=== PATIENT | female | born 1945 | race Caucasian/White ===

== ENCOUNTER 2016-04-07 17:54 | Observation (INO) | payer MEDICARE, OTHER ==
[~2016-04-07] VITALS: Ht 152.4 cm; Wt 46.0 kg
[~2016-04-07 17:54] MED LIST: CIPR500T4 PO; FLUT1SPR9 NASAL; LITH450 PO; [UNRECOGNIZED DRUG - CODE] PO
[2016-04-07 17:57] VITALS: BP 144/71; PULSE 109; RESP 20; TEMP 98.6; O2SAT 99
--- NOTE | 2016-04-07 18:37 | PD ---
HPI Chief Complaint: Abnormal Results Time Seen by Provider: 18:37 Travel History International Travel<30 days: No Contact w/Intl Traveler<30days: No Traveled to known affect area: No History of Present Illness HPI 70-year-old female with a history of bipolar disorder, anxiety, depression and COPD presents to the emergency department for evaluation of left lower leg DVT. Patient states that one week ago she began to have cramping in her left posterior calf. States that she took Aleve which relieved her symptoms. States that 2 nights ago she began to have swelling in the left leg and ankle. States that the swelling is worsened over the past 2 days which prompted her to see her PCP in office today. States that her doctor ordered an outpatient ultrasound which showed she had an extensive DVT in the left leg and she was told to come to the emergency department. She does complain of swelling in the left leg and some dull pain. Denies any chest pain, shortness of breath, lightheadedness, dizziness, numbness or tingling, weakness. Denies any history of recent long distance travel, hormones, cancer or history of blood clots. She does smoke cigarettes. No other complaints. PFSH Past Medical History Bipolar Disorder: Yes Anxiety: Yes Depression: Yes Chest Pain: Yes COPD: Yes Musculoskeletal: Yes (DEGENERATIVE DISC DISEASE) Psychiatric: Yes Respiratory: Yes Tetanus Vaccination: Unknown Influenza Vaccination: No ?: Not Menopausal: Yes : 6 Para: 3 Miscarriage: 3 Tubal Ligation: Yes (1981) Past Surgical History Appendectomy: Yes Cholecystectomy: Yes Tonsillectomy: Yes Other Surgery: Yes (SPLEENECTOMY AGE 25) Social History Alcohol Use: Yes ("OCCASIONALLY") Tobacco Use: Yes (1PPD) Substance Use: No Allergies-Medications (Allergen,Severity, Reaction): Coded Allergies: Codeine (Verified Allergy, Severe, Chest Pain, 04/07/16) Reported Meds & Prescriptions Reported Meds & Active Scripts Active Reported [place] Carbonate ER ([place] Carbonate) 450 Mg Tab 675 Mg PO DAILY Kelp (Iodine (Kelp)) 150 Mcg Tab 520 Mcg PO DAILY Review of Systems Except as stated in HPI: all other systems reviewed are Neg Physical Exam Narrative GENERAL: Well-nourished and well-developed pleasant patient in no acute distress who is nontoxic appearing. SKIN: Warm and dry. HEAD: Normocephalic and atraumatic. EYES: No injection, drainage, or hyphema noted. PERRLA. EOMI. ENT: No nasal drainage noted. Oropharynx is clear. NECK: Supple and the trachea is midline. CARDIOVASCULAR: Regular rate and rhythm. RESPIRATORY: Breath sounds are equal bilaterally with no accessory muscle use, wheezing, rhonchi, or crackles. GASTROINTESTINAL: Abdomen is soft, non-tender, and nondistended. MUSCULOSKELETAL: Left lower leg is swollen with mild erythema and tenderness to palpation of the left calf. DP pulses are 2+ bilaterally. Capillary refill is within normal limits. No obvious deformities, cyanosis, or ecchymosis is present throughout the upper and lower extremities. Patient has full range of motion without any signs of neurovascular compromise. NEUROLOGICAL: Awake, alert, and oriented. Normal speech and gait. Cranial nerves are grossly intact. Data Data Last Documented VS Vital Signs Date Time Temp Pulse Resp B/P Pulse Ox O2 Delivery O2 Flow Rate FiO2 04/07/16 18:40 99 Room Air 04/07/16 18:16 100 22 04/07/16 17:57 98.6 144/71 Orders Complete Blood Count With Diff (04/07/16 18:36) Comprehensive Metabolic Panel (04/07/16 18:36) Prothrombin Time / Inr (Pt) (04/07/16 18:36) Act Partial Throm Time (Ptt) (04/07/16 18:36) Iv Access Insert/Monitor (04/07/16 18:36) Ecg Monitoring (04/07/16 18:36) Oximetry (04/07/16 18:36) Sodium Chloride 0.9% Flush (Ns Flush) (04/07/16 18:45) Admit Order (Ed Use Only) (04/07/16 18:53) Labs Laboratory Tests Test 04/07/16 18:45 White Blood Count 15.5 TH/MM3 Red Blood Count 5.12 MIL/MM3 Hemoglobin 16.9 GM/DL Hematocrit 50.4 % Mean Corpuscular Volume 98.5 FL Mean Corpuscular Hemoglobin 33.0 PG Mean Corpuscular Hemoglobin 33.5 % Concent Red Cell Distribution Width 13.4 % Platelet Count 351 TH/MM3 Mean Platelet Volume 9.3 FL Neutrophils (%) (Auto) 69.5 % Lymphocytes (%) (Auto) 20.4 % Monocytes (%) (Auto) 4.8 % Eosinophils (%) (Auto) 2.5 % Basophils (%) (Auto) 2.8 % Neutrophils # (Auto) 10.8 TH/MM3 Lymphocytes # (Auto) 3.2 TH/MM3 Monocytes # (Auto) 0.7 TH/MM3 Eosinophils # (Auto) 0.4 TH/MM3 Basophils # (Auto) 0.4 TH/MM3 CBC Comment DIFF FINAL Differential Comment Prothrombin Time 11.0 SEC Prothromb Time International 1.0 RATIO Ratio Activated Partial 25.9 SEC Thromboplast Time Sodium Level 140 MEQ/L Potassium Level 4.1 MEQ/L Chloride Level 106 MEQ/L Carbon Dioxide Level 26.9 MEQ/L Anion Gap 7 MEQ/L Blood Urea Nitrogen 7 MG/DL Creatinine 1.19 MG/DL Estimat Glomerular Filtration 45 ML/MIN Rate Random Glucose 136 MG/DL Calcium Level 9.2 MG/DL Total Bilirubin 0.5 MG/DL Aspartate Amino Transf 25 U/L (AST/SGOT) Alanine Aminotransferase 16 U/L (ALT/SGPT) Alkaline Phosphatase 120 U/L Total Protein 7.8 GM/DL Albumin 3.3 GM/DL MDM Medical Decision Making Medical Screen Exam Complete: Yes Emergency Medical Condition: Yes Differential Diagnosis DVT versus extensive versus dependent edema Narrative Course 70-year-old female presents to the emergency department for evaluation of left leg DVT. Patient is afebrile, vital signs are stable. She does have swelling of her left lower leg. I accessed the [facility] imaging website and found the ultrasound report for the imaging was performed today. It shows DVT extending in the popliteal, peroneal and posterior tibial veins consistent with extensive DVT. No evidence of thrombus in the femoral vein. IV access is obtained, labs have been drawn and sent. Patient will be admitted to family medicine service for anticoagulation. CBC shows an elevated white blood cell count of 15.5. CMP shows mild renal insufficiency with a creatinine of 1.19, GFR 45. Coags are unremarkable. Patient is administered Lovenox 40 mg subcutaneous per the request of the admitting physician. I discussed the case with my attending physician Dr. Palma who is aware of the patients history, physical examination findings, and treatment plan. Physician Communication Physician Communication I spoke with Dr. Hinton, medical record technician, who agrees to admit the patient to their service. Diagnosis Primary Impression: Left leg DVT Qualified Code: I82.492 - Acute deep vein thrombosis (DVT) of other specified vein of left lower extremity Admitting Information Admitting Physician Requests: Observation Dori Gold Apr 07, 2016 18:37
[2016-04-07 18:40] VITALS: O2SAT 99
[2016-04-07] MEDS ORDERED: SODIUM CHLORIDE 0.9% FLUSH 5 ML FLUSH IVF PRN ×2 (18:45→21:45)
[2016-04-07] MEDS ORDERED: LITH450T PO (18:53)
[2016-04-07] MEDS ORDERED: KELP150T PO (18:53)
[2016-04-07 19:13] LABS: AUTOMATED NEUTROPHIL # 10.8 TH/MM3 (1.8-7.7); BASOPHIL # 0.4 TH/MM3 (0-0.2); BASOPHIL % 2.8 % (0.0-2.0); EOSINOPHIL # 0.4 TH/MM3 (0-0.4); EOSINOPHIL % 2.5 % (0.0-4.0); HEMATOCRIT 50.4 % (35.0-46.0); LYMPH % 20.4 % (9.0-44.0); LYMPHOCYTE # 3.2 TH/MM3 (1.0-4.8); MEAN CELL VOLUME 98.5 FL (80.0-100.0); MEAN CORPUSCULAR HGB CONC 33.5 % (32.0-36.0); MONO % 4.8 % (0.0-8.0); NEUT % 69.5 % (16.0-70.0); PLATELET COUNT 351 TH/MM3 (150-450); RED BLOOD COUNT 5.12 MIL/MM3 (4.00-5.30); RED CELL DISTRIBUTION WIDTH 13.4 % (11.6-17.2); WHITE BLOOD COUNT 15.5 TH/MM3 (4.0-11.0)
[2016-04-07 19:16] LABS: HEMO FLAGS DIFF FINAL
[2016-04-07 19:19] LABS: APTT (PATIENT) 25.9 SEC (24.3-30.1)
--- NOTE | 2016-04-07 20:23 | HHI.HP ---
[facility] Service Family Medicine Primary Care Physician Greer Hinton MD Admission Diagnosis Extensive Left Leg DVT Diagnoses: Chief Complaint: L leg swelling and pain International Travel<30 Days: No Contact w/Intl Traveler<30days: No Known Affected Area: No History of Present Illness 70 year-old female with bipolar d/o, COPD/tobacco abuse, and hyperthyroidism presents to ED for evaluation of L leg DVT. One week ago, began having cramping in L posterior calf, which extended up leg posteriorly to mid-thigh. Over past several days, developed increased swelling in calf and ankle which prompted her to go to PCP. PCP office ordered outpt U/S, which confirmed extensive DVT in LLE and instructed her to go to ED for tx. Continues to report dull calf pain and swelling improved minimallly with Aleve. Denies chest pain, shortness of breath, lightheadedness, dizziness, numbness or tingling, weakness. Denies recent long distance travel, hormones, cancer or history of blood clots. She does smoke cigarettes Review of Systems ROS Limitations: Poor Historian, Other (Hyperverbal, tangential speech, difficult to re-direct) Constitutional: DENIES: Fever, Chills Respiratory: DENIES: Cough, Shortness of breath Cardiovascular: DENIES: Chest pain, Palpitations Gastrointestinal: DENIES: Abdominal pain, Nausea, Vomiting Musculoskeletal: COMPLAINS OF: Muscle aches (L leg) Integumentary: DENIES: Abnormal pigmentation Neurologic: DENIES: Abnormal gait, Headache Psychiatric: DENIES: Anxiety, Mood changes, Agitation Past Family Social History Past Medical History Bipolar d/o, on lithium COPD Tobacco Abuse Recurrent sinusitis Non-toxic goiter Hyperthyroidism, on OTC Kelp (?) Denies cardiac history OBGYN hx: , 3 miscarriages. Hx LSIL (2010) Past Surgical History Cataract extraction (X [address] Boggs) Appendectomy Cholecystectomy Splenectomy Hernia repair Colposcopy (2010) Reported Medications [place] Carbonate ER ([place] Carbonate) 450 Mg Tab 675 Mg PO DAILY Kelp (Iodine (Kelp)) 150 Mcg Tab 520 Mcg PO DAILY Allergies: Coded Allergies: Codeine (Verified Allergy, Severe, Chest Pain, 04/07/16) Family History Son: "blood clot to pacemaker" last week. She is unsure if he smokes tobacco. Denies family history of bleeding or clotting disorders. Social History High school graduate. partner, Pat. Denies travel history out of country Tobacco: 1-1.5 PPD * 50 years Alcohol- Several times a week, 3-6 beers Recreational drugs: denies Physical Exam Vital Signs Vital Signs Date Time Temp Pulse Resp B/P Pulse Ox O2 Delivery O2 Flow Rate FiO2 04/07/16 18:40 99 Room Air 04/07/16 18:16 100 22 98 Room Air 04/07/16 17:57 98.6 109 20 144/71 99 Physical Exam GENERAL: Thin female, NAD. DERM: Warm and dry. Dry skin over LLE. No erythema. HEENT: PERRL. EOMI. MMM. NECK: No LAD CV: RRR. No murmurs. RESP: Lungs CTAB. No wheezing. No wet cough. Good air movement. Breathing comfortably on RA GI: Abd soft, NTND. No guarding MSK: LLE slightly more swollen circumfrencially than R with dilated veins on anterior real. Unable to appreciate any ankle swelling- medial and lateral malleoli easily visualized. Unable to palpate posterior tibial pulses, however, good perfusion. Sensation intact to light touch in LE. ROM and strength at knee/ankle is full. NEUROLOGICAL: Grossly motor and sensory intact PSYCH: Rapid, pressured, tangential speech. Poor insight (pt denies speaking quickly, states she is at her normal). Cheery, uplifted affect. Laboratory Laboratory Tests Test 04/07/16 18:45 White Blood Count 15.5 Red Blood Count 5.12 Hemoglobin 16.9 Hematocrit 50.4 Mean Corpuscular Volume 98.5 Mean Corpuscular Hemoglobin 33.0 Mean Corpuscular Hemoglobin 33.5 Concent Red Cell Distribution Width 13.4 Platelet Count 351 Mean Platelet Volume 9.3 Neutrophils (%) (Auto) 69.5 Lymphocytes (%) (Auto) 20.4 Monocytes (%) (Auto) 4.8 Eosinophils (%) (Auto) 2.5 Basophils (%) (Auto) 2.8 Neutrophils # (Auto) 10.8 Lymphocytes # (Auto) 3.2 Monocytes # (Auto) 0.7 Eosinophils # (Auto) 0.4 Basophils # (Auto) 0.4 CBC Comment DIFF FINAL Differential Comment Prothrombin Time 11.0 Prothromb Time International 1.0 Ratio Activated Partial 25.9 Thromboplast Time Result Diagram: 04/07/16 9604 Imaging DVT imaging through different EMR- unable to import Assessment and Plan Assessment and Plan 70 year-old female with bipolar d/o, hyperthyroidism, and COPD/tobacco abuse admitted to observation 04/07/16 for LLE DVT. Code Status Full Discussed Condition With SDW: Dr. Tomer Hinton Problem List: (1) Left leg DVT Status: Acute Plan: [facility] U/S report (04/07/16): DVT extending in the popliteal , peroneal and posterior tibial veins consistent with extensive DVT. No evidence of thrombus in the femoral vein. 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 DVT likely secondary to hypercoagulable state 2/2 smoking and pt reported prolonged immobility in bed while taking care of elderly mother. As first non-provoked CVT, with suspected source (tobacco, immobility) hypercoagulable workup not deemed necessary at present time -Admit to observation -Therapeutic Lovenox 40mg IV BID (1mg/kg) -Likely change Lovenox to Xarelto PO in AM, pending discussion with primary team - acceptable to use as monotherapy for outpt tx DV -Continue for 3-12 months per PCP recommendations (2) Bipolar disorder without psychotic features Status: Chronic Plan: -Continue home [place] 675mg daily -Encourage medication compliance (3) Tobacco dependence Status: Acute Plan: 1 PPD * 50 years. Hx intolerance to Chantix ("nightmares"). Low motivation to stop smoking. -Discussed that smoking increases risk of clot formation and likely contributed to DVT -Declines nicotine patch: "makes me shaky, my body rejects them" -Smoking cessation counseling provided (4) Goiter diffuse, nontoxic Status: Chronic Plan: Most recent TSH 03/2015 was low, indicating hyperthyroidism. Unsure why pt is on this suppliemnt- unlikely that she is iodine deficient in [place] diet and and may actually be contributing to hyperthyroid state. -Hold home Kelp (iodine), consider discontinuation at discharge (5) Fluid, Electrolytes, Nutrition, DVT prophylaxis Status: Chronic Plan: Fluids: Per PO Electrolytes: wnl, continue to monitor Nutrition: Regular diet DVT ppx: Therapeutic Lovenox 1mg/kg IV BID GI ppx: not indicated Pain: Tylenol 650mg PO q4h PRN pain 1-10 OOB ad agustina Dispo: Likely discharge tomorrow pending VSS and transition to oral anticoagulant therapy Problem Qualifiers (1) Left leg DVT: Qualified Code: I82.492 - Acute deep vein thrombosis (DVT) of other specified vein of left lower extremity Flor Colbert MD R1 Apr 07, 2016 20:23
[2016-04-07 20:40] VITALS: BP 155/78; PULSE 92; RESP 18; O2SAT 98
[2016-04-07] MEDS ORDERED: ACETAMINOPHEN 500 MG CPLT PO ONE (21:00)
[2016-04-07 21:08] LABS: ALKALINE PHOSPHATASE 120 U/L (45-117); ALT (GPT) 16 U/L (10-53); ANION GAP 7 MEQ/L (5-15); AST (GOT) 25 U/L (15-37); BICARBONATE 26.9 MEQ/L (21.0-32.0); BLOOD UREA NITROGEN 7 MG/DL (7-18); CHLORIDE 106 MEQ/L (98-107); GLOMERULAR FILTRATION RATE 45 ML/MIN (>89); SODIUM (NA) 140 MEQ/L (136-145); TOTAL BILIRUBIN ADULT 0.5 MG/DL (0.2-1.0)
[2016-04-07 21:09] LABS: POTASSIUM 4.1 MEQ/L (3.5-5.1)
[2016-04-07] MEDS ORDERED: ENOXAPARIN SODIUM 40 MG/0.4 ML SYRINGE SQ ONE (21:15)
[2016-04-07] MEDS: SODIUM CHLORIDE 0.9% FLUSH 5 ML FLUSH IVF SCH (21:45)
[2016-04-07 22:54] VITALS: O2SAT 98
[2016-04-08 04:00] VITALS: BP 118/56; PULSE 66; RESP 16; TEMP 97.3; O2SAT 99
[2016-04-08] MEDS ORDERED: ENOXAPARIN SODIUM 60 MG/0.6 ML SYRINGE SQ SCH (06:00)
[2016-04-08 07:52] VITALS: BP 129/62; PULSE 75; RESP 19; TEMP 99.2; O2SAT 97
[2016-04-08] MEDS ORDERED: LITHIUM CARBONATE 450 MG CONTROLLED RELEASE TAB PO SCH (09:00)
[2016-04-08] MEDS: SODIUM CHLORIDE 0.9% FLUSH 5 ML FLUSH IVF SCH (09:44)
--- NOTE | 2016-04-08 10:53 | HHI.FPPN ---
Subjective Remarks Pt. seen and examined; discussed with Dr. Morales on 04-07-16. This is a 70 yo female known to me with goiter, smoking history. She has quite a sedentary lifestyle, at home caring for her elderly mother. She developed a charley horse type pain in the left calf last wednesday which seemed to resolved with weight-bearing, but her discomfort persisted despite Aleve. She has had some pain, swelling and paresthesias of the left LE. This a.m. she is more comfortable, but anxious to return home as her mother is a significant fall risk and has dementia and history of multiple falls/ fractures. Please see H&P for this observation admission for additional past, family and social history and ROS. Objective Vitals Vital Signs Date Time Temp Pulse Resp B/P Pulse Ox O2 Delivery O2 Flow Rate FiO2 04/08/16 07:52 99.2 75 19 129/62 97 04/08/16 04:00 97.3 66 16 118/56 99 04/07/16 22:54 98 04/07/16 20:40 92 18 155/78 98 Room Air 04/07/16 18:40 99 Room Air 04/07/16 18:16 100 22 98 Room Air 04/07/16 17:57 98.6 109 20 144/71 99 I/O 04/07/16 04/07/16 04/07/16 04/08/16 04/08/16 04/08/16 07:00 15:00 23:00 07:00 15:00 23:00 Intake Total 240 ml Balance 240 ml Intake Oral 240 ml # Voids 1 1 Result Diagram: 04/07/16184404/07/161844 Imaging Extensive DVT in the superficial femoral, popliteal, peroneal and posterior tibial veins, not compressible. Common femoral vein no evidence of thrombus. Objective Remarks O. CONSTITUTIONAL/GEN: normally nourished, in NAD. EYES: conjunctiva normal, PERRLA, EOMI. ENT: Mouth and pharynx normal. NECK: thyroid midline, carotids symmetrical. LUNGS: clear A-P, respiratory effort is normal. CARDIOVASCULAR: RR without murmur or gallop. No significant edema. GI/ABD: soft without masses, without organomegaly. NEURO: No focal deficits. SKIN: color normal, no rashes noted. HEME/LYMPH: no bruising, petechia or significant adenopathy MUSC: back is normal in appearance. LLE shows mild increase in circumference, no palpable cords. Gustavo's sign vaguely positive. PSYCH/MENTAL STATUS: Alert and oriented x 3. A/P Assessment and Plan 70 year-old female with bipolar d/o, hyperthyroidism, and COPD/tobacco abuse admitted to observation 04/07/16 for extensive LLE DVT in the superficial femoral , popliteal, peroneal and posterior tibial veins.. Attending Attestation Patient seen and examined. Case reviewed and discussed with the resident team. Agree with plan of care as discussed with me and documented in the resident note. Problem List: (1) Left leg DVT Status: Acute Plan: [facility] U/S report (04/07/16): DVT extending in the popliteal , peroneal and posterior tibial veins consistent with extensive DVT. No evidence of thrombus in the femoral vein. 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 DVT likely secondary to hypercoagulable state 2/2 smoking and pt reported prolonged immobility in bed while taking care of elderly mother. As first non-provoked CVT, with suspected source (tobacco, immobility) hypercoagulable workup not deemed necessary at present time -Admit to observation -Therapeutic Lovenox 40mg IV BID (1mg/kg) -Likely change Lovenox to Xarelto PO in AM, pending discussion with primary team - acceptable to use as monotherapy for outpt tx DV -Continue for 3-12 months per PCP recommendations (2) Bipolar disorder without psychotic features Status: Chronic Plan: -Continue home [place] 675mg daily -Encourage medication compliance (3) Tobacco dependence Status: Acute Plan: 1 PPD * 50 years. Hx intolerance to Chantix ("nightmares"). Low motivation to stop smoking. -Discussed that smoking increases risk of clot formation and likely contributed to DVT -Declines nicotine patch: "makes me shaky, my body rejects them" -Smoking cessation counseling provided (4) Goiter diffuse, nontoxic Status: Chronic Plan: Most recent TSH 03/2015 was low, indicating hyperthyroidism. Unsure why pt is on this suppliemnt- unlikely that she is iodine deficient in [place] diet and and may actually be contributing to hyperthyroid state. -Hold home Kelp (iodine), consider discontinuation at discharge (5) Fluid, Electrolytes, Nutrition, DVT prophylaxis Status: Chronic Plan: Fluids: Per PO Electrolytes: wnl, continue to monitor Nutrition: Regular diet DVT ppx: Therapeutic Lovenox 1mg/kg IV BID GI ppx: not indicated Pain: Tylenol 650mg PO q4h PRN pain 1-10 OOB ad agustina Dispo: Likely discharge tomorrow pending VSS and transition to oral anticoagulant therapy Problem Qualifiers (1) Left leg DVT: Qualified Code: I82.412 - Acute deep vein thrombosis (DVT) of femoral vein of left lower extremity Greer Hinton MD Apr 08, 2016 10:53
[2016-04-08] MEDS ORDERED: XARE15TA PO (11:40)
[2016-04-08] MEDS ORDERED: RIVAROXABAN 15 MG TAB PO ONE (11:45)
--- NOTE | 2016-04-08 11:45 | HHI.DCPOC ---
Discharge Care Plan Diagnosis: (1) Left leg DVT Goals to Promote Your Health * To prevent worsening of your condition and complications * To maintain your health at the optimal level Directions to Meet Your Goals Take your medications as prescribed Follow your dietary instruction Follow activity as directed Keep your appointments as scheduled Take your immunizations and boosters as scheduled If your symptoms worsen call your PCP, if no PCP go to Urgent Care Center or Emergency Room Smoking is Dangerous to Your Health. Avoid second hand smoke Call the 24-hour hour crisis hotline for domestic abuse at Monroe Trammell MD R1 Apr 08, 2016 11:45
[2016-04-28] MEDS ORDERED: CELE20TA PO (13:51)
[2016-06-23] MEDS ORDERED: ASPI81CH37 CHEW (16:25)
== END 2016-04-08 17:57 | disposition home or self-care (01) ==
LOC: NEPE 17:54 → NEDA 18:55 → NEPGCP 23:30
PROVIDERS: ADMIT Family Medicine; ATTEND Family Medicine
DX: I82.492 Acute embolism and thrombosis of other specified deep vein of left lower extremity (principal); M79.662 Pain in left lower leg; N28.9 Disorder of kidney and ureter, unspecified; F17.210 Nicotine dependence, cigarettes, uncomplicated; J44.9 Chronic obstructive pulmonary disease, unspecified; F31.9 Bipolar disorder, unspecified
CPT/HCPCS: 80053; 85025; 85610; 85730; 99284; G0378; J1650

== ENCOUNTER 2016-11-17 12:56 | Observation (INO) | payer MEDICARE, OTHER ==
[~2016-11-17] VITALS: Ht 162.6 cm; Wt 50.0 kg
[~2016-11-17 12:56] MED LIST changes: +ASPI81CH6 CHEW; -CIPR500T4 PO; -FLUT1SPR9 NASAL; +FLUT50SP EACH NARE; +KELP150T PO; -LITH450 PO; +LITH450T PO; -[UNRECOGNIZED DRUG - CODE] PO
[2016-11-17 12:57] VITALS: BP 158/74; PULSE 98; RESP 16; TEMP 99.7; O2SAT 98
[2016-11-17] MEDS ORDERED: IOHEXOL 350 MG/ML 10 ML VIAL (for RAD DIAG) IVCONTRAST ONE (12:57)
[2016-11-17] MEDS ORDERED: IODI150T (14:51)
--- NOTE | 2016-11-17 14:53 | PD ---
HPI Chief Complaint: Pain: Acute or Chronic Time Seen by Provider: 14:30 Travel History International Travel<30 days: No Contact w/Intl Traveler<30days: No Traveled to known affect area: No History of Present Illness HPI Ms. Rodney is a 71-year-old female with past medical history of blood clots, ITP , and splenectomy presenting today with a blood clot in her right thigh. She states that she had an appointment this morning with her PCP, Dr. Greer Hinton, at 8:30 where she stated she had right groin pain that started a week ago. She states she just started having swelling today in her right thigh. She was sent over to [facility] where she was told she had several blood clots. She was then sent to the ED here. She last had a blood clot in her left thigh in March of this year. She was placed on Xarelto 30 mg, but had severe nosebleeds. She was then decreased to 10 mg a day for 2 months. She is now taking Zoraida 81 mg a day. She denies any recent long car/plane rides. She is very active. No chest pain, no shortness of breath. PFSH Past Medical History Bipolar Disorder: Yes Anxiety: Yes Depression: Yes Chest Pain: Yes COPD: Yes Musculoskeletal: Yes (DEGENERATIVE DISC DISEASE) Psychiatric: Yes Respiratory: Yes Menopausal: Yes : 6 Para: 3 Miscarriage: 3 Tubal Ligation: Yes (1981) Past Surgical History Appendectomy: Yes Cholecystectomy: Yes Tonsillectomy: Yes Other Surgery: Yes (SPLEENECTOMY AGE 25) Social History Alcohol Use: Yes ("OCCASIONALLY") Tobacco Use: Yes (1PPD) Substance Use: No Allergies-Medications (Allergen,Severity, Reaction): Coded Allergies: codeine (Unverified Allergy, Severe, Chest Pain, 11/17/16) Reported Meds & Prescriptions Reported Meds & Active Scripts Active Fluticasone Nasal [place] 50 Mcg/Act Naspr 100 Mcg EACH NARE DAILY 50 mcg/spray Reported Kelp (Iodine) 150 Mcg Tablet Aspirin Low Dose (Aspirin) 81 Mg Chew 81 Mg CHEW DAILY [place] Carbonate ER ([place] Carbonate) 450 Mg Tab 675 Mg PO DAILY Review of Systems General / Constitutional: No: Fever, Chills HENT: No: Headaches, Lightheadedness Cardiovascular: No: Chest Pain or Discomfort, Palpitations Respiratory: No: Shortness of Breath Neurologic: No: Weakness, Dizziness Physical Exam Narrative GENERAL: Well-nourished, well-developed patient. SKIN: Warm and dry. HEAD: Normocephalic. EYES: No scleral icterus. No injection or drainage. NECK: Supple, trachea midline. No JVD or lymphadenopathy. CARDIOVASCULAR: Regular rate and rhythm without murmurs, gallops, or rubs. RESPIRATORY: Breath sounds equal bilaterally. No accessory muscle use. Diffuse expiratory wheezes. GASTROINTESTINAL: Abdomen soft, non-tender, nondistended. EXTREMITIES: No cyanosis, Right thigh>than left. Negative Homans sign. Tenderness of right calf muscle. NEUROLOGICAL: Awake, alert. Non-focal. Data Data Last Documented VS Vital Signs Date Time Temp Pulse Resp B/P (MAP) Pulse Ox O2 Delivery O2 Flow Rate FiO2 11/17/16 14:52 99 16 11/17/16 12:57 99.7 158/74 (102) 98 Room Air Orders Orders Complete Blood Count With Diff (11/17/16 14:47) Comprehensive Metabolic Panel (11/17/16 14:47) Prothrombin Time / Inr (Pt) (11/17/16 14:47) Act Partial Throm Time (Ptt) (11/17/16 14:47) Ct Pulmonary Angiogram (11/17/16 14:47) Enoxaparin Inj (Lovenox Inj) (11/17/16 15:45) Iohexol 350 Inj (Omnipaque 350 Inj) (11/17/16 12:57) Labs Laboratory Tests Test 11/17/16 15:05 White Blood Count 20.4 TH/MM3 Red Blood Count 5.82 MIL/MM3 Hemoglobin 19.8 GM/DL Hematocrit 58.1 % Mean Corpuscular Volume 99.8 FL Mean Corpuscular Hemoglobin 34.0 PG Mean Corpuscular Hemoglobin Concent 34.0 % Red Cell Distribution Width 14.3 % Platelet Count 154 TH/MM3 Mean Platelet Volume 8.4 FL Neutrophils (%) (Auto) 78.6 % Lymphocytes (%) (Auto) 13.7 % Monocytes (%) (Auto) 6.3 % Eosinophils (%) (Auto) 0.7 % Basophils (%) (Auto) 0.7 % Neutrophils # (Auto) 16.0 TH/MM3 Lymphocytes # (Auto) 2.8 TH/MM3 Monocytes # (Auto) 1.3 TH/MM3 Eosinophils # (Auto) 0.1 TH/MM3 Basophils # (Auto) 0.1 TH/MM3 CBC Comment DIFF FINAL Differential Comment Prothrombin Time 11.3 SEC Prothromb Time International Ratio 1.0 RATIO Activated Partial Thromboplast Time 27.3 SEC Blood Urea Nitrogen 7 MG/DL Creatinine 0.94 MG/DL Random Glucose 112 MG/DL Total Protein 8.0 GM/DL Albumin 3.4 GM/DL Calcium Level 9.2 MG/DL Alkaline Phosphatase 114 U/L Aspartate Amino Transf (AST/SGOT) 20 U/L Alanine Aminotransferase (ALT/SGPT) 13 U/L Total Bilirubin 1.2 MG/DL Sodium Level 137 MEQ/L Potassium Level 4.2 MEQ/L Chloride Level 105 MEQ/L Carbon Dioxide Level 24.2 MEQ/L Anion Gap 8 MEQ/L Estimat Glomerular Filtration Rate 59 ML/MIN MDM Medical Decision Making Medical Screen Exam Complete: Yes Emergency Medical Condition: Yes Differential Diagnosis DVT vs PE vs MSK Narrative Course Ms. Rodney is a 71yoWF with a PMH of DVT presenting with DVT. Physical exam shows right calf tenderness. Will rule out PE. [facility]: There is deep venous thrombosis within the superficial femoral vein, popliteal vein, peroneal vein and posterior tibial veins. Extensive DVT. CTA: 1. Pulmonary embolism involving the lower lobe distal segmental and subsegmental pulmonary artery branches bilaterally. Overall, small to moderate thrombus burden without evidence for significant pulmonary artery hypertension or right heart strain at this time. 2. Severe upper lobe predominant centrilobular emphysema. -Coagulation studies -CTA- shows multiple PEs -Consult Case Management for anticoagulation options and affordable pricing for patient. Admitting Information Admitting Physician Requests: Ana Brizuela MD R1 Nov 17, 2016 14:53
[2016-11-17 15:24] LABS: BASOPHIL # 0.1 TH/MM3 (0-0.2); BASOPHIL % 0.7 % (0.0-2.0); EOSINOPHIL # 0.1 TH/MM3 (0-0.4); EOSINOPHIL % 0.7 % (0.0-4.0); HEMATOCRIT 58.1 % (35.0-46.0); HEMO FLAGS DIFF FINAL; LYMPH % 13.7 % (9.0-44.0); LYMPHOCYTE # 2.8 TH/MM3 (1.0-4.8); MEAN CELL VOLUME 99.8 FL (80.0-100.0); MONO % 6.3 % (0.0-8.0); NEUT % 78.6 % (16.0-70.0); PLATELET COUNT 154 TH/MM3 (150-450); RED BLOOD COUNT 5.82 MIL/MM3 (4.00-5.30); RED CELL DISTRIBUTION WIDTH 14.3 % (11.6-17.2); WHITE BLOOD COUNT 20.4 TH/MM3 (4.0-11.0)
[2016-11-17 15:39] LABS: ALT (GPT) 13 U/L (10-53); ANION GAP 8 MEQ/L (5-15); AST (GOT) 20 U/L (15-37); BICARBONATE 24.2 MEQ/L (21.0-32.0); BLOOD UREA NITROGEN 7 MG/DL (7-18); CHLORIDE 105 MEQ/L (98-107); GLOMERULAR FILTRATION RATE 59 ML/MIN (>89); POTASSIUM 4.2 MEQ/L (3.5-5.1); PROTHROMBIN TIME - PATIENT 11.3 SEC (9.8-11.6); SODIUM (NA) 137 MEQ/L (136-145)
[2016-11-17 15:40] LABS: ALKALINE PHOSPHATASE 114 U/L (45-117); TOTAL BILIRUBIN ADULT 1.2 MG/DL (0.2-1.0)
[2016-11-17 15:41] LABS: APTT (PATIENT) 27.3 SEC (24.3-30.1)
--- NOTE | 2016-11-17 16:50 | RADRPT ---
EXAM DATE/TIME: 11/17/2016 16:04 [facility] COMPARISON: No previous studies available for comparison. INDICATIONS : Clot in leg IV CONTRAST: 50 cc Omnipaque 350 (iohexol) IV RADIATION DOSE: 3.59 CTDIvol (mGy) MEDICAL HISTORY : Chronic obstructive pulmonary disease. Diabetes,graves dissease SURGICAL HISTORY : Appendectomy. Cholecystectomy.Splenectomy. ENCOUNTER: Initial ACUITY: 1 day PAIN SCALE: 0/10 LOCATION: chest TECHNIQUE: Volumetric scanning of the chest was performed using a pulmonary embolism protocol MIP images were re constructed. Using automated exposure control and adjustment of the mA and/or kV according to patien t size, radiation dose was kept as low as reasonably achievable to obtain optimal diagnostic quality images. DICOM format image data is available electronically for review and comparison. Follow-up recommendations for detected pulmonary nodules are based at a minimum on nodule size and pa tient risk factors according to Fleischner Society Guidelines. FINDINGS: PULMONARY ARTERIES: There are intraluminal filling defects involving the lower lobe distal segmental and subsegmental pul monary arteries bilaterally. More central segmental and main pulmonary arteries are patent. There is overall, small to moderate thrombus burden. Main pulmonary artery is normal in caliber. LUNGS: Severe upper lobe predominant centrilobular emphysema. PLEURAE: There is no pleural thickening or pleural effusion. MEDIASTINUM: Heart is grossly unremarkable without evidence for pericardial effusion or right heart strain. No sig nificant mediastinal adenopathy. MUSCULOSKELETAL: Within normal limits for patient age. MISCELLANEOUS: Partially imaged bilateral renal cysts noted in the upper abdomen. Adreniform enlargement of the left adrenal gland. CONCLUSION: 1. Pulmonary embolism involving the lower lobe distal segmental and subsegmental pulmonary artery bra nches bilaterally. Overall, small to moderate thrombus burden without evidence for significant pulmon jacquelyn artery hypertension or right heart strain at this time. 2. Severe upper lobe predominant centrilobular emphysema. Javier Johnson MD on November 17, 2016 at 16:43 Board Certified Radiologist. This report was verified electronically.
[2016-11-17 17:05] VITALS: BP 128/78; PULSE 80; RESP 28; O2SAT 99
[2016-11-17] MEDS: ENOXAPARIN SODIUM 60 MG/0.6 ML SYRINGE SQ SCH (17:05)
--- NOTE | 2016-11-17 17:30 | PD ---
Physical Exam Date Seen by Provider: Nov 17, 2016 Time Seen by Provider: 15:00 Narrative I, Dr. Stout, have reviewed the advance practice practitioner's documentation and am in agreement, met with the patient face to face, made the diagnosis, and the medical decision making was done by me. *My assessment and Findings: Patient seen and evaluated with family practice resident, Dr. Diaz, please see previous notes for further details. Patient has been sent in for DVT, for further workup and treatment. Laboratory Tests Test 11/17/16 15:05 White Blood Count 20.4 TH/MM3 (4.0-11.0) Red Blood Count 5.82 MIL/MM3 (4.00-5.30) Hemoglobin 19.8 GM/DL (11.6-15.3) Hematocrit 58.1 % (35.0-46.0) Neutrophils (%) (Auto) 78.6 % (16.0-70.0) Neutrophils # (Auto) 16.0 TH/MM3 (1.8-7.7) Monocytes # (Auto) 1.3 TH/MM3 (0-0.9) Random Glucose 112 MG/DL (74-106) Total Bilirubin 1.2 MG/DL (0.2-1.0) Estimat Glomerular Filtration Rate 59 ML/MIN (>89) CAT scan as revealing PE as well. At this point, patient was given Lovenox in case was discussed with Dr. Hinton, patient's primary care physician, who is agreeable for admission to her service. Data Data Last Documented VS Vital Signs Date Time Temp Pulse Resp B/P (MAP) Pulse Ox O2 Delivery O2 Flow Rate FiO2 11/17/16 17:05 80 28 128/78 (95) 99 Room Air 11/17/16 12:57 99.7 Orders Orders Complete Blood Count With Diff (11/17/16 14:47) Comprehensive Metabolic Panel (11/17/16 14:47) Prothrombin Time / Inr (Pt) (11/17/16 14:47) Act Partial Throm Time (Ptt) (11/17/16 14:47) Ct Pulmonary Angiogram (11/17/16 14:47) Enoxaparin Inj (Lovenox Inj) (11/17/16 17:00) Iohexol 350 Inj (Omnipaque 350 Inj) (11/17/16 12:57) Admit Order (Ed Use Only) (11/17/16 17:11) Labs Laboratory Tests Test 11/17/16 15:05 White Blood Count 20.4 TH/MM3 Red Blood Count 5.82 MIL/MM3 Hemoglobin 19.8 GM/DL Hematocrit 58.1 % Mean Corpuscular Volume 99.8 FL Mean Corpuscular Hemoglobin 34.0 PG Mean Corpuscular Hemoglobin Concent 34.0 % Red Cell Distribution Width 14.3 % Platelet Count 154 TH/MM3 Mean Platelet Volume 8.4 FL Neutrophils (%) (Auto) 78.6 % Lymphocytes (%) (Auto) 13.7 % Monocytes (%) (Auto) 6.3 % Eosinophils (%) (Auto) 0.7 % Basophils (%) (Auto) 0.7 % Neutrophils # (Auto) 16.0 TH/MM3 Lymphocytes # (Auto) 2.8 TH/MM3 Monocytes # (Auto) 1.3 TH/MM3 Eosinophils # (Auto) 0.1 TH/MM3 Basophils # (Auto) 0.1 TH/MM3 CBC Comment DIFF FINAL Differential Comment Prothrombin Time 11.3 SEC Prothromb Time International Ratio 1.0 RATIO Activated Partial Thromboplast Time 27.3 SEC Blood Urea Nitrogen 7 MG/DL Creatinine 0.94 MG/DL Random Glucose 112 MG/DL Total Protein 8.0 GM/DL Albumin 3.4 GM/DL Calcium Level 9.2 MG/DL Alkaline Phosphatase 114 U/L Aspartate Amino Transf (AST/SGOT) 20 U/L Alanine Aminotransferase (ALT/SGPT) 13 U/L Total Bilirubin 1.2 MG/DL Sodium Level 137 MEQ/L Potassium Level 4.2 MEQ/L Chloride Level 105 MEQ/L Carbon Dioxide Level 24.2 MEQ/L Anion Gap 8 MEQ/L Estimat Glomerular Filtration Rate 59 ML/MIN [facility] Medical Record Reviewed: Yes Supervised Visit with JEANNE: No Diagnosis Primary Impression: DVT (deep vein thrombosis) in Additional Impression: Pulmonary embolism Admitting Information Admitting Physician Requests: Connor Pereira MD Nov 17, 2016 17:29
--- NOTE | 2016-11-17 18:01 | HHI.HP ---
[facility] Service Family Medicine Primary Care Physician Greer Hinton MD Admission Diagnosis DVT/PE Diagnoses: International Travel<30 Days: No Contact w/Intl Traveler<30days: No Known Affected Area: No History of Present Illness Ms. Rodney is a 71-year-old female with past medical history of blood clots, ITP , and splenectomy presenting today with a blood clot in her right thigh. She states that she had an appointment this morning with her PCP, Dr. Greer Hinton, at 8:30 where she stated she had right groin pain that started a week ago. She states she just started having swelling today in her right thigh. She was sent over to [facility] where she was told she had several blood clots. She was then sent to the ED here. She last had a blood clot in her left thigh in March of this year. She was placed on Xarelto 30 mg, but had severe nosebleeds. She was then decreased to 10 mg a day for 2 months. She is now taking Zoraida 81 mg a day. She denies any recent long car/plane rides. She is very active. No chest pain, no shortness of breath. Review of Systems Constitutional: DENIES: Fever, Chills Endocrine: DENIES: Polydipsia, Polyuria Eyes: DENIES: Blurred vision, Diplopia, Eye pain, Double Vision Ears, nose, mouth, throat: DENIES: Hearing loss, Throat pain, Running Nose, Sinus Pain Respiratory: DENIES: Cough, Shortness of breath Cardiovascular: COMPLAINS OF: Dyspnea on Exertion (at baseline), Lower Extremity Edema (right thigh), DENIES: Chest pain, Palpitations Gastrointestinal: DENIES: Abdominal pain, Black stools, Bloody stools, Constipation, Diarrhea, Nausea, Vomiting Genitourinary: DENIES: Hematuria, Dysuria Integumentary: DENIES: Pruritus, Rash Neurologic: DENIES: Headache, Localized weakness Past Family Social History Past Medical History PFS Reviewed: Yes HEENT: REPORTS HX OF: Recurrent sinusitis Endocrine: REPORTS HX OF: Diabetes mellitus (dad), Graves disease, Hyperthyroidism Respiratory: REPORTS HX OF: Other respiratory history (smoker X many years) Cardiovascular: DENIES HX OF: Angina, Atrial fibrillation, Cardiac arrhythmias , Coronary artery disease, Deep venous thrombosis, Heart failure, Heart valve disease, Hyperlipidemia, Hypertension, Myocardial infarction, Peripheral vascular dz, Other CV history Gastrointestinal: DENIES HX OF: Colitis, GERD, Irritable bowel syndrome, Liver disease, Pancreatitis, Peptic ulcer disease, Other GI history (had bleeding ulcer 30 years ago) Genitourinary: REPORTS HX OF: Human papillomavirus (probable, had lsil and f/u colposcopy) Gynecologic: REPORTS HX OF: Abnormal pap smear (lsil 6-7 years ago), Other senior analyst developer history (had colposcopy) Age at Menarche: 16 Age at Menopause: 40s History: : 6 Para: 6 Live Births: 3 SAB/TAB (detail in comments): Yes (3 miscarriages) Musculoskeletal: DENIES HX OF: Fractures, Gout, Osteoporosis, Other musculoskeletal hx Cancer - Female: DENIES HX OF: Cervical cancer, Ovarian cancer, Uterine cancer Neurologic: DENIES HX OF: ADHD, Autism, Dementia, Developmental delay, Headaches, Multiple sclerosis, Peripheral neuropathy, Restless leg syndrome, Seizures, Stroke, Transient ischemic attack, Other neurologic history Psychiatric: REPORTS HX OF: Bipolar disorder (on lithium) Events: DENIES HX OF: Anaphylaxis, Gunshot wound, Motor vehicle accident, Other events Disease Management Refuses flu vaccine Refuses mammograms Partner of many years . Now living with 85 yo mother Drinks 3-6 beers per day Eats raisinettes and chips every day at bedtime Smokes more than half a pack of cigarettes daily Feels confined continues to refuse flu shot or mammogram Past Surgical History HEENT: REPORTS HX OF: Cataract extraction (X [address] Boggs), DENIES HX OF: Laryngectomy, Tonsillectomy, Other head surgery, Other eye surgery , Other ear surgery, Other nasal surgery, Other throat surgery Endocrine: DENIES HX OF: Parathyroidectomy, Thyroid surgery, Other endocrine surgery Respiratory: DENIES HX OF: Bronchoscopy, Lobectomy, Other chest surgery Cardiovascular: DENIES HX OF: Angiogram, Angioplasty, CABG surgery, Carotid endarterectomy, Coronary stent, Heart transplant, Pacemaker, Valve replacement, Other cardiac surgery Gastrointestinal: REPORTS HX OF: Appendectomy, Cholecystectomy, Splenectomy, Other GI surgery (hernia) Genitourinary: DENIES HX OF: Bladder surgery, Kidney stone extraction, Nephrectomy, Other surgery Gynecologic: REPORTS HX OF: Other senior analyst developer surgery (colposcopy), DENIES HX OF: Hysterectomy Musculoskeletal: DENIES HX OF: Joint replacement, Other musculoskeletal srg Integumentary: DENIES HX OF: Skin cancer removal, Other integumentary surg Neurologic: DENIES HX OF: Craniotomy, Spinal surgery, Other neurologic surgery Breast: DENIES HX OF: Breast biopsy, Lumpectomy, Mastectomy, bilateral, Mastectomy, left, Mastectomy, right, Other breast surgery Reported Medications Reported Meds & Active Scripts Active Fluticasone Nasal [place] 50 Mcg/Act Naspr 100 Mcg EACH NARE DAILY 50 mcg/spray Reported Kelp (Iodine) 150 Mcg Tablet Aspirin Low Dose (Aspirin) 81 Mg Chew 81 Mg CHEW DAILY [place] Carbonate ER ([place] Carbonate) 450 Mg Tab 675 Mg PO DAILY Allergies: Coded Allergies: codeine (Unverified Allergy, Severe, Chest Pain, 11/17/16) Active Ordered Medications Current Medications Medications (Trade) Dose Ordered Sig/[place] Route Start Time Stop Time Status Last Admin (Lovenox Inj) 50 mg Q12H SQ 11/17/16 17:00 11/17/16 17:05 (NS Flush) 2 ml UNSCH PRN IV FLUSH 11/17/16 18:15 UNV (NS Flush) 2 ml BID IV FLUSH 11/17/16 21:00 UNV (Lovenox Inj) 50 mg Q12H SQ 11/18/16 05:05 UNV (Aspirin Chew) 81 mg DAILY CHEW 11/18/16 09:00 UNV (Flonase James Spr) 1 spray DAILY EACH NARE 11/18/16 09:00 UNV (Eskalith Sr) 675 mg DAILY PO 11/18/16 09:00 UNV Family History non-contributory Social History Social History Social History: Adopted: No Educational Level: 12th Household Members: her partner Pat Marital Status: div Service: No Pets: Yes (fish, 4 cats and dog at Pat's house) Relationships: Pat is significant other (female) Sexual History: Lesbian Travel History: None out of the country Diet and Exercise Dietary Habits: Well-balanced Diet: Rarely or never Alcohol Use Alcohol Intake: 2+ drinks per day Counseling Given: None, Provider counseling (recommended reducing her alcohol intake to one or less a day.) Substance Use Substance Use: Denies use (family history) Counseling Given: None Roxy/Jain Roxy Tradition/Jain: Yarsani Safety Personal Safety: Hx of Physical Abuse: No Hx of Emotional Abuse: No Additional Information Additional History Partner of many years . Now living with 89 yo mother Drinks 3-6 beers per day Eats raisin at amputated chips every day at bedtime Smokes more than a pack of cigarettes daily Feels confined continues to refuse flu shot or mammogram Physical Exam Vital Signs Vital Signs Date Time Temp Pulse Resp B/P (MAP) Pulse Ox O2 Delivery O2 Flow Rate FiO2 11/17/16 17:05 80 28 128/78 (95) 99 Room Air 11/17/16 14:52 99 16 11/17/16 12:57 99.7 98 16 158/74 (102) 98 Room Air Physical Exam GENERAL: Well-nourished, well-developed patient. SKIN: Warm and dry. HEAD: Normocephalic. EYES: No scleral icterus. No injection or drainage. NECK: Supple, trachea midline. No JVD or lymphadenopathy. CARDIOVASCULAR: Regular rate and rhythm without murmurs, gallops, or rubs. RESPIRATORY: Breath sounds equal bilaterally. No accessory muscle use. Diffuse expiratory wheezes. GASTROINTESTINAL: Abdomen soft, non-tender, nondistended. EXTREMITIES: No cyanosis, Right thigh bigger, warmer, and redder than left. Negative Homans sign. Tenderness of right calf muscle. NEUROLOGICAL: Awake, alert. Non-focal. Laboratory Laboratory Tests Test 11/17/16 15:05 White Blood Count 20.4 Red Blood Count 5.82 Hemoglobin 19.8 Hematocrit 58.1 Mean Corpuscular Volume 99.8 Mean Corpuscular Hemoglobin 34.0 Mean Corpuscular Hemoglobin Concent 34.0 Red Cell Distribution Width 14.3 Platelet Count 154 Mean Platelet Volume 8.4 Neutrophils (%) (Auto) 78.6 Lymphocytes (%) (Auto) 13.7 Monocytes (%) (Auto) 6.3 Eosinophils (%) (Auto) 0.7 Basophils (%) (Auto) 0.7 Neutrophils # (Auto) 16.0 Lymphocytes # (Auto) 2.8 Monocytes # (Auto) 1.3 Eosinophils # (Auto) 0.1 Basophils # (Auto) 0.1 CBC Comment DIFF FINAL Differential Comment Prothrombin Time 11.3 Prothromb Time International Ratio 1.0 Activated Partial Thromboplast Time 27.3 Blood Urea Nitrogen 7 Creatinine 0.94 Random Glucose 112 Total Protein 8.0 Albumin 3.4 Calcium Level 9.2 Alkaline Phosphatase 114 Aspartate Amino Transf (AST/SGOT) 20 Alanine Aminotransferase (ALT/SGPT) 13 Total Bilirubin 1.2 Sodium Level 137 Potassium Level 4.2 Chloride Level 105 Carbon Dioxide Level 24.2 Anion Gap 8 Estimat Glomerular Filtration Rate 59 Result Diagram: 11/17/16 1505 11/17/[address] Angiography 11/17/16 1447 Signed Impressions: Service Date/Time: Thursday, November 17, 2016 16:04 - CONCLUSION: 1. Pulmonary embolism involving the lower lobe distal segmental and subsegmental pulmonary artery branches bilaterally. Overall, small to moderate thrombus burden without evidence for significant pulmonary artery hypertension or right heart strain at this time. 2. Severe upper lobe predominant centrilobular emphysema. Javier Johnson MD Course In the emergency department, patient had CT pulmonary angiogram, a PTT, PT/INR, CMP, CBC, Lovenox 1 mg/kg, admission order. Caprini VTE Risk Assessment Caprini VTE Risk Assessment: Mod/High Risk (score >= 2) Caprini Risk Assessment Model Point Value = 1 Point Value = 2 Point Value = 3 Point Value = 5 Age 41-60 Minor surgery BMI > 25 kg/m2 Swollen legs Varicose veins or History of unexplained or recurrent spontaneous Oral contraceptives or hormone replacement Sepsis (< 1 month) Serious lung disease, including pneumonia (< 1 month) Abnormal pulmonary function Acute myocardial infarction Congestive heart failure (< 1 month) History of inflammatory bowel disease Medical patient at bed rest Age 61-74 Arthroscopic surgery Major open surgery (> 45 min) Laparoscopic surgery (> 45 min) Malignancy Confined to bed (> 72 hours) Immobilizing plaster cast Central venous access Age >= 75 History of VTE Family history of VTE Factor V Leiden Prothrombin [id number] Lupus anticoagulant Anticardiolipin antibodies Elevated serum homocysteine Heparin-induced thrombocytopenia Other congenital or acquired thrombophilia Stroke (< 1 month) Elective arthroplasty Hip, pelvis, or leg fracture Acute spinal cord injury (< 1 month) Prophylaxis Regimen Total Risk Factor Score Risk Level Prophylaxis Regimen 0-1 Low Early ambulation 2 Moderate Order ONE of the following: *Sequential Compression Device (SCD) *Heparin 5000 units SQ BID 3-4 Higher Order ONE of the following medications: *Heparin 5000 units SQ TID *Enoxaparin/Lovenox 40 mg SQ daily (WT < 150 kg, CrCl > 30 mL/min) *Enoxaparin/Lovenox 30 mg SQ daily (WT < 150 kg, CrCl > 10-29 mL/min) *Enoxaparin/Lovenox 30 mg SQ BID (WT < 150 kg, CrCl > 30 mL/min) AND/OR *Sequential Compression Device (SCD) 5 or more Highest Order ONE of the following medications: *Heparin 5000 units SQ TID (Preferred with Epidurals) *Enoxaparin/Lovenox 40 mg SQ daily (WT < 150 kg, CrCl > 30 mL/min) *Enoxaparin/Lovenox 30 mg SQ daily (WT < 150 kg, CrCl > 10-29 mL/min) *Enoxaparin/Lovenox 30 mg SQ BID (WT < 150 kg, CrCl > 30 mL/min) AND *Sequential Compression Device (SCD) Assessment and Plan Assessment and Plan Ms. Rodney is a 71-year-old female with past medical history of blood clots, ITP , and splenectomy presenting today with a blood clot in her right thigh, also found to have PE on CTA. Plan to observe for AC. Code Status DNR/DNI Discussed Condition With d/w Dr. Hinton Problem List: (1) Pulmonary embolism ICD Codes: I26.99 - Other pulmonary embolism without acute cor pulmonale Status: Acute Plan: -observation -lovenox 1mg/kg bid, and then plan to transition to oral AC -hemoccult -nurse monitoring/tele -monitor vitals -monitor I&O -incentive spirometry -O2 as needed -pulse ox -DuoNebs PRN -cbc, bmp (2) DVT (deep venous thrombosis) ICD Codes: I82.409 - Acute embolism and thrombosis of unspecified deep veins of unspecified lower extremity Plan: -plan as above -pain control with Tylenol and [place] -Medications as needed for constipation (3) CAD (coronary artery disease) ICD Codes: I25.10 - Atherosclerotic heart disease of [place] coronary artery without angina pectoris Plan: -ASA 81mg po qd (4) COPD (chronic obstructive pulmonary disease) ICD Codes: J44.9 - Chronic obstructive pulmonary disease Status: Acute Plan: -DuoNeb every 4 hours when necessary for shortness of breath (5) Bipolar disorder without psychotic features ICD Codes: F31.9 - Bipolar disorder without psychotic features Status: Chronic Plan: -continue home medication of lithium (6) Fluid, Electrolytes, Nutrition, DVT prophylaxis Status: Chronic Plan: Fluids: Patient tolerating by mouth Electrolytes: Monitor Nutrition: Regular basic diet DVT ppx: Lovenox as above Horace Vines MD R2 Nov 17, 2016 18:01
[2016-11-17] MEDS ORDERED: RESP: ALBUTEROL 2.5 MG/IPRATROPIUM 0.5 MG NEB (PRN) NEB (18:15)
[2016-11-17] MEDS ORDERED: SODIUM CHLORIDE 0.9% FLUSH 10 ML FLUSH IV FLUSH PRN (18:15)
[2016-11-17] MEDS ORDERED: ACETAMINOPHEN/HYDROcodone 325 MG/7.5 MG TAB PO PRN (18:30)
[2016-11-17] MEDS ORDERED: LACTULOSE SYRUP 20 GM/30 ML CUP PO PRN (18:30)
[2016-11-17] MEDS ORDERED: ACETAMINOPHEN 325 MG TAB PO PRN ×2 (18:30)
[2016-11-17] MEDS ORDERED: MAGNESIUM HYDROXIDE SUSP 30 ML CUP PO PRN (18:30)
[2016-11-17] MEDS ORDERED: SENNOSIDES 8.6 MG TAB PO PRN (18:30)
[2016-11-17] MEDS ORDERED: ONDANSETRON HCL 4 MG/2 ML VIAL IVP PRN (18:30)
[2016-11-17] MEDS ORDERED: BISACODYL 10 MG SUPP RECTAL PRN (18:30)
[2016-11-17] MEDS ORDERED: ACETAMINOPHEN/HYDROcodone 325 MG/5 MG TAB PO PRN (18:30)
[2016-11-17] MEDS ORDERED: MORPHINE SULFATE 4 MG/ML INJ IV PUSH PRN (18:30)
[2016-11-17 18:38] VITALS: O2SAT 96
[2016-11-17] MEDS ORDERED: DO NOT ADM ANY ANTICOAGULANT DRUGS PRN (18:45)
[2016-11-17 20:00] VITALS: BP 145/74; PULSE 91; RESP 18; TEMP 96.2; O2SAT 99
[2016-11-17] MEDS: DOCUSATE SODIUM 50 MG/SENNA 8.6 MG TAB PO SCH (21:00)
[2016-11-17] MEDS: SODIUM CHLORIDE 0.9% FLUSH 10 ML FLUSH IV FLUSH SCH (22:22)
[2016-11-18] VITALS: BP 143/68; PULSE 99; RESP 18; TEMP 99.1; O2SAT 96
[2016-11-18 04:00] VITALS: BP 108/57; PULSE 81; RESP 18; TEMP 98.4; O2SAT 92
[2016-11-18] MEDS ORDERED: ENOXAPARIN SODIUM 60 MG/0.6 ML SYRINGE SQ SCH (05:05)
[2016-11-18] MEDS: ENOXAPARIN SODIUM 60 MG/0.6 ML SYRINGE SQ SCH (05:20)
[2016-11-18 07:34] LABS: AUTOMATED NEUTROPHIL # 13.3 TH/MM3 (1.8-7.7); BASOPHIL # 0.1 TH/MM3 (0-0.2); BASOPHIL % 0.7 % (0.0-2.0); EOSINOPHIL # 0.4 TH/MM3 (0-0.4); EOSINOPHIL % 2.2 % (0.0-4.0); HEMATOCRIT 50.7 % (35.0-46.0); HEMO FLAGS DIFF FINAL; LYMPH % 13.5 % (9.0-44.0); LYMPHOCYTE # 2.4 TH/MM3 (1.0-4.8); MEAN CELL VOLUME 99.6 FL (80.0-100.0); MEAN CORPUSCULAR HGB CONC 34.2 % (32.0-36.0); MONO % 7.3 % (0.0-8.0); NEUT % 76.3 % (16.0-70.0); PLATELET COUNT 142 TH/MM3 (150-450); RED BLOOD COUNT 5.09 MIL/MM3 (4.00-5.30); RED CELL DISTRIBUTION WIDTH 13.8 % (11.6-17.2); WHITE BLOOD COUNT 17.4 TH/MM3 (4.0-11.0)
[2016-11-18 08:00] VITALS: BP 169/78; PULSE 88; RESP 18; TEMP 97.8; O2SAT 97
[2016-11-18 08:00] LABS: POTASSIUM 4.1 MEQ/L (3.5-5.1)
[2016-11-18] MEDS: SODIUM CHLORIDE 0.9% FLUSH 10 ML FLUSH IV FLUSH SCH (08:39)
[2016-11-18] MEDS: DOCUSATE SODIUM 50 MG/SENNA 8.6 MG TAB PO SCH (08:40)
[2016-11-18] MEDS ORDERED: ASPIRIN 81 MG CHEW TAB CHEW SCH (09:00)
[2016-11-18] MEDS ORDERED: LITHIUM CARBONATE 450 MG CONTROLLED RELEASE TAB PO SCH (09:00)
[2016-11-18] MEDS ORDERED: FLUTICASONE PROPIONATE 50 MCG/ACT 16 GM NASAL SPRAY EACH NARE SCH (09:00)
[2016-11-18 10:23] VITALS: O2SAT 96
[2016-11-18 12:00] VITALS: BP 131/84; PULSE 88; RESP 16; TEMP 97.9; O2SAT 97
--- NOTE | 2016-11-18 12:09 | HHI.FPPN ---
Subjective Remarks No acute events overnight. She denies any chest pain/shortness of breath/ dizziness. She has no complaints and she would like to return home as soon as possible. The patient states she continues to be unsatisfied with her stay here ; she can not get water and food when she wants that, and she will use that this can be done outpatient. She expresses her frustration and fear surrounding restarting a new anticoagulant. When she was on Xarelto in the past she had frequent nosebleeds that interrupted her daily life. Patient denies any fever or chills overnight. (Miriam Lagos MD R2) Objective Vitals Vital Signs Date Time Temp Pulse Resp B/P (MAP) Pulse Ox O2 Delivery O2 Flow Rate FiO2 11/18/16 10:23 96 21 11/18/16 08:00 97.8 88 18 169/78 (108) 97 11/18/16 04:00 98.4 81 18 108/57 (74) 92 11/18/16 00:00 99.1 99 18 143/68 (93) 96 11/17/16 20:00 96.2 91 18 145/74 (97) 99 11/17/16 18:38 96 21 11/17/16 17:05 80 28 128/78 (95) 99 Room Air 11/17/16 14:52 99 16 11/17/16 12:57 99.7 98 16 158/74 (102) 98 Room Air (Miriam Lagos MD R2) Result Diagram: 11/18/16 0700 11/18/16 0700 Objective Remarks GENERAL: No acute distress, yet clearly verbally frustrated with her hospital stay SKIN: Warm and dry. HEAD: Normocephalic. EYES: No scleral icterus. No injection or drainage. NECK: Supple, trachea midline. No JVD or lymphadenopathy. CARDIOVASCULAR: Regular rate and rhythm without murmurs, gallops, or rubs. RESPIRATORY: Breath sounds equal bilaterally, diffusely soft expiratory wheezes . No accessory muscle use. GASTROINTESTINAL: Abdomen soft, non-tender, nondistended. Extremities: No cyanosis, no erythema, no swelling or pitting edema, only mild pain to palpation on right groin area. MUSCULOSKELETAL: No cyanosis, or edema. BACK: Nontender without obvious deformity. No CVA tenderness. (Miriam Lagos MD R2) A/P Assessment and Plan Ms. Rodney is a 71-year-old female with past medical history of blood clots, ITP , and splenectomy presenting today with a blood clot in her right thigh, also found to have PE on CTA. Plan to observe for AC. (Miriam Lagos MD R2) Attending Attestation Patient seen and examined. Case reviewed and discussed with the resident team. Agree with plan of care as discussed with me and documented in the resident note. (Greer Hinton MD) Problem List: (1) Pulmonary embolism ICD Codes: I26.99 - Other pulmonary embolism without acute cor pulmonale Status: Acute Plan: -observation -plan to transition to oral AC -hemoccult negative - CBC: WBC: 19.8 --> 17.3 (2) DVT (deep venous thrombosis) ICD Codes: I82.409 - Acute embolism and thrombosis of unspecified deep veins of unspecified lower extremity Plan: -plan as above -pain control with Tylenol and [place] -Medications as needed for constipation (3) CAD (coronary artery disease) ICD Codes: I25.10 - Atherosclerotic heart disease of [place] coronary artery without angina pectoris Plan: -ASA 81mg po qd (4) COPD (chronic obstructive pulmonary disease) ICD Codes: J44.9 - Chronic obstructive pulmonary disease Status: Acute Plan: -DuoNeb every 4 hours when necessary for shortness of breath (5) Bipolar disorder without psychotic features ICD Codes: F31.9 - Bipolar disorder without psychotic features Status: Chronic Plan: -continue home medication of lithium (6) Fluid, Electrolytes, Nutrition, DVT prophylaxis Status: Chronic Plan: Fluids: Patient tolerating by mouth Electrolytes: Monitor Nutrition: Regular basic diet DVT ppx: Lovenox as above (Miriam Lagos MD R2) Problem Qualifiers (1) Pulmonary embolism: Qualified Codes: I26.99 - Other pulmonary embolism without acute cor pulmonale (2) DVT (deep venous thrombosis): Qualified Codes: I82.401 - Acute embolism and thrombosis of unspecified deep veins of right lower extremity Miriam Lagos MD R2 Nov 18, 2016 12:09 Greer Hinton MD Nov 18, 2016 15:48
[2016-11-18] MEDS ORDERED: APIX5TAB PO (15:07)
--- NOTE | 2016-11-18 15:10 | HHI.DCPOC ---
Discharge Care Plan Diagnosis: (1) Pulmonary embolism (2) CAD (coronary artery disease) (3) DVT (deep venous thrombosis) Goals to Promote Your Health * To prevent worsening of your condition and complications * To maintain your health at the optimal level Directions to Meet Your Goals Take your medications as prescribed Follow your dietary instruction Follow activity as directed Keep your appointments as scheduled Take your immunizations and boosters as scheduled If your symptoms worsen call your PCP, if no PCP go to Urgent Care Center or Emergency Room Smoking is Dangerous to Your Health. Avoid second hand smoke Call the 24-hour hour crisis hotline for domestic abuse at Miriam Lagos MD R2 Nov 18, 2016 15:10
[2016-11-24] MEDS ORDERED: APIX5TAB PO (11:30)
[2016-11-24] MEDS ORDERED: VENTAER INH (12:00)
== END 2016-11-18 15:50 | disposition home or self-care (01) ==
LOC: NEPC 12:56 → NEDA 17:13 → UNDOADMIN 17:13 → NEDA 18:07 → INTOOBSV 18:07 → N07B 19:24 → NEDA 19:24 → UNDODISIN 11-18 15:50
PROVIDERS: ADMIT Family Medicine; ATTEND Family Medicine
DX: I82.411 Acute embolism and thrombosis of right femoral vein (principal); I82.431 Acute embolism and thrombosis of right popliteal vein; I82.449 Acute embolism and thrombosis of unspecified tibial vein; I82.811 Embolism and thrombosis of superficial veins of right lower extremity; I26.99 Other pulmonary embolism without acute cor pulmonale; J43.2 Centrilobular emphysema; I25.10 Atherosclerotic heart disease of native coronary artery without angina pectoris; Z66 Do not resuscitate; Z88.5 Allergy status to narcotic agent; Z79.82 Long term (current) use of aspirin
CPT/HCPCS: 71275; 76937; 80048; 80053; 80178; 82272; 85025; 85610; 85730; 94150; 96372; 99285; G0378; J1650; Q9967